=== PATIENT | female | born 1975 | race Caucasian/White ===

== ENCOUNTER 2023-08-30 12:13 | Day surgery (SDC) | payer MEDICAID, MEDICARE ==
[2023-08-29 10:19] VITALS: BMI 22.8
[2023-08-30] MEDS ORDERED: PROPOFOL 60 ML ONE (14:43)
[2023-08-30] MEDS ORDERED: Midazolam HCl 2 mg/2 ml Vial ONE (15:17)
== END 2023-08-30 16:16 | disposition home or self-care (01) ==
LOC: CSHSDC 12:13
PROVIDERS: ATTEND Surgery
PROC: 0DB68ZX Excision of Stomach, Via Natural or Artificial Opening Endoscopic, Diagnostic (ICD-10-PCS; principal; 2023-08-30)
DX: K29.50 Unspecified chronic gastritis without bleeding (principal); E11.9 Type 2 diabetes mellitus without complications; F32.A Depression, unspecified; F41.9 Anxiety disorder, unspecified; Z79.84 Long term (current) use of oral hypoglycemic drugs; E78.5 Hyperlipidemia, unspecified; Z98.84 Bariatric surgery status; Z79.899 Other long term (current) drug therapy
CPT/HCPCS: 88305; J2250; J2704

== ENCOUNTER 2023-09-14 08:43 | Outpatient (CLI) | payer MEDICARE | END 2023-09-14 08:44 | disposition home or self-care (01) | LOC: CSHCT 08:43 | PROVIDERS: ATTEND Surgery | DX: R10.13 Epigastric pain (principal); Z98.84 Bariatric surgery status; K83.8 Other specified diseases of biliary tract; Z90.710 Acquired absence of both cervix and uterus | CPT/HCPCS: 74177 ==

== ENCOUNTER 2023-10-21 06:24 | Day surgery (SDC) | payer MEDICARE ==
[2023-10-20 12:10] VITALS: BMI 21.9
[2023-10-21] MEDS ORDERED: PROPOFOL 80 ML ONE (08:14)
[2023-10-21] MEDS ORDERED: Midazolam HCl 2 mg/2 ml Vial ONE (08:14)
[2023-10-21] MEDS ORDERED: PROPOFOL 60 ML ONE (09:10)
[2023-10-21] MEDS ORDERED: Ondansetron PF 4 MG/2 ML Vial ONE (10:33)
== END 2023-10-21 10:50 | disposition home or self-care (01) ==
LOC: CSHSDC 06:24
PROVIDERS: ATTEND Surgery
PROC: 0DBM8ZX Excision of Descending Colon, Via Natural or Artificial Opening Endoscopic, Diagnostic (ICD-10-PCS; principal; 2023-10-21)
DX: Z12.11 Encounter for screening for malignant neoplasm of colon (principal); E11.9 Type 2 diabetes mellitus without complications; E78.00 Pure hypercholesterolemia, unspecified; F31.9 Bipolar disorder, unspecified; F41.9 Anxiety disorder, unspecified; G89.29 Other chronic pain; G43.909 Migraine, unspecified, not intractable, without status migrainosus; I10 Essential (primary) hypertension; M19.90 Unspecified osteoarthritis, unspecified site; K21.9 Gastro-esophageal reflux disease without esophagitis; I95.1 Orthostatic hypotension; F15.90 Other stimulant use, unspecified, uncomplicated; Z87.891 Personal history of nicotine dependence; Z90.710 Acquired absence of both cervix and uterus; Z90.89 Acquired absence of other organs; Z98.890 Other specified postprocedural states; Z79.899 Other long term (current) drug therapy
CPT/HCPCS: 88305; J2250; J2405; J2704

== ENCOUNTER 2024-08-31 06:04 | Day surgery (SDC) | payer MEDICARE ==
[2024-08-24 11:13] VITALS: BMI 21.9
[2024-08-31] MEDS ORDERED: Sevoflurane 250 ML INH ANEST BOTTLE ONE (06:57)
[2024-08-31] MEDS ORDERED: SUGAMMADEX SODIUM 200 MG/2 ML VIAL ONE (07:05)
[2024-08-31] MEDS ORDERED: PROPOFOL 40 ML ONE (07:05)
[2024-08-31] MEDS ORDERED: Fentanyl 250 MCG/5 ML VIAL ONE (07:06)
[2024-08-31] MEDS ORDERED: Midazolam HCl 2 mg/2 ml Vial ONE (07:59)
[2024-08-31] MEDS ORDERED: CEFAZOLIN 2 GM VIAL ONE (08:28)
[2024-08-31] MEDS ORDERED: ePHEDrine Sulfate 50 MG/10 ML VIAL ONE (08:49)
[2024-08-31] MEDS ORDERED: Ondansetron PF 4 MG/2 ML Vial ONE (09:08)
[2024-08-31] MEDS ORDERED: Hydrocortisone Sod Succ/PF 100 mg/2 ml Vial ONE (09:21)
[2024-08-31] MEDS ORDERED: Esmolol 100 MG/10 ML VIAL ONE (09:22)
[2024-08-31] MEDS ORDERED: Bupivacaine/Epinephrine 0.25% 30 ML VIAL ONE (09:23)
[2024-08-31] MEDS ORDERED: fentaNYL 50 mcg/mL 1 mL Vial ONE ×4 (10:15→11:04)
[2024-08-31] MEDS ORDERED: Ketorolac Tromethamine 30 MG (1 mL) VIAL ONE (10:33)
[2024-08-31] MEDS ORDERED: Promethazine HCl 25 MG/ML VIAL ONE (10:43)
[2024-08-31] MEDS ORDERED: HYDROcodone/Acetaminophen 5/325 mg Tablet ONE (11:26)
== END 2024-08-31 12:05 | disposition home or self-care (01) ==
LOC: CSHSDC 06:04
PROVIDERS: ATTEND Surgery
PROC: 0FT44ZZ Resection of Gallbladder, Percutaneous Endoscopic Approach (ICD-10-PCS; principal; 2024-08-31)
DX: K80.10 Calculus of gallbladder with chronic cholecystitis without obstruction (principal); K82.8 Other specified diseases of gallbladder; E11.9 Type 2 diabetes mellitus without complications; I10 Essential (primary) hypertension; E66.01 Morbid (severe) obesity due to excess calories; K91.2 Postsurgical malabsorption, not elsewhere classified; E78.5 Hyperlipidemia, unspecified; F31.9 Bipolar disorder, unspecified; F41.9 Anxiety disorder, unspecified; G43.909 Migraine, unspecified, not intractable, without status migrainosus; G47.33 Obstructive sleep apnea (adult) (pediatric); I95.1 Orthostatic hypotension; M54.12 Radiculopathy, cervical region; G47.00 Insomnia, unspecified; Z87.891 Personal history of nicotine dependence; Z98.890 Other specified postprocedural states; Z79.899 Other long term (current) drug therapy; Z90.710 Acquired absence of both cervix and uterus; Z98.51 Tubal ligation status; Z98.84 Bariatric surgery status; Z68.22 Body mass index [BMI] 22.0-22.9, adult
CPT/HCPCS: 47562; C1889; J1885; J2250; J2405; J2550; J2704; J3010 ×2; S2900; 88304; J1720